=== PATIENT | female | born 1930 | race Caucasian/White ===

== ENCOUNTER 2017-04-22 11:50 | Emergency (ER) | payer OTHER ==
[~2017-04-22] VITALS: Ht 160 cm; Wt 57.0 kg
[~2017-04-22 11:50] MED LIST: HYDR-3535 PO; PRIL40CA PO; SIMV5TAB32 PO; TAB-TAB PO
[2017-04-22 12:07] VITALS: BP 177/69; PULSE 80; RESP 16; TEMP 98.5; O2SAT 96
[2017-04-22] MEDS ORDERED: D-20TAB3 PO (12:20)
[2017-04-22] MEDS ORDERED: OMEP20TA93 PO (12:20)
[2017-04-22] MEDS ORDERED: CALC200S NASAL (12:20)
[2017-04-22] MEDS ORDERED: CENTCHW4 CHEW (12:20)
[2017-04-22] MEDS ORDERED: CITRTAB7 PO (12:20)
[2017-04-22] MEDS ORDERED: SIMV20TA PO (12:20)
--- NOTE | 2017-04-22 13:33 | RADRPT ---
EXAM DATE/TIME: 04/22/2017 13:05 [place] COMPARISON: No previous studies available for comparison. INDICATIONS : Stubbed left foot, 5th toe, on table leg 1 week ago, has pain, and on and off swelling to foot MEDICAL HISTORY : Chronic obstructive pulmonary disease. SURGICAL HISTORY : None. ENCOUNTER: Initial ACUITY: 1 week PAIN SCORE: 5/10 LOCATION: Left foot FINDINGS: Three view examination of the left foot demonstrates mild soft tissue prominence overlying the latera l forefoot region. No subcutaneous emphysema or radiopaque foreign bodies. Osseous structures appear intact without evidence for acute bony fracture. The tarsal bones appear intact. The interphalangea l and metatarsophalangeal joints are intact. The calcaneus is intact. Bony mineralization is normal . CONCLUSION: 1. Mild soft tissue prominence overlying the lateral forefoot without subcutaneous emphysema or radio paque foreign bodies. 2. No acute fracture or dislocation. Alonso Sun MD on April 22, 2017 at 13:29 Board Certified Radiologist. This report was verified electronically.
--- NOTE | 2017-04-22 13:43 | PD ---
HPI Chief Complaint: Injury Time Seen by Provider: 12:27 Travel History International Travel<30 days: No Contact w/Intl Traveler<30days: No Traveled to known affect area: No History of Present Illness HPI 86-year-old female here with left foot pain swelling and bruising after she stubbed the foot on furniture approximately 7 days ago. She reports pain with weightbearing and range of motion of the toes. Pain is relieved with rest. Symptoms severity mild. She denies paresthesia or weakness of the extremity. [facility] Past Medical History High Cholesterol: Yes Diminished Hearing: No GERD: Yes ?: Not Past Surgical History Surgical History: No Previous Surgery Social History Alcohol Use: Yes (1-2 GLASSES OF WINE PER WEEK) Tobacco Use: No Substance Use: No Allergies-Medications (Allergen,Severity, Reaction): Coded Allergies: No Known Allergies (Verified Adverse Reaction, Unknown, 04/22/17) Reported Meds & Prescriptions Reported Meds & Active Scripts Active Reported Centrum (Multiple Vitamins W/ Minerals) 1 Chew 1 Tab CHEW DAILY Centrum (Multiple Vitamins W/ Minerals) 1 Chew 1 Tab CHEW DAILY Citracal + D3 Maximum (Calcium Citrate-Vitamin D) 315-250 Mg-Unit Tab 2 Tab PO BID D-2000 Maximum Strength (Cholecalciferol) 2,000 Unit Tab 2,000 Units PO DAILY Omeprazole 20 Mg Tab 20 Mg PO DAILY Simvastatin 20 Mg Tab 20 Mg PO DAILY Calcitonin ([place]) Nasal Pelzer (Calcitonin [place]) 200 Units/Act Soln 1 Pelzer NASAL DAILY Alternate nostrils daily. Review of Systems Except as stated in HPI: all other systems reviewed are Neg Physical Exam Narrative GENERAL: Alert well-appearing female in no distress SKIN: Warm and dry. HEAD: Normocephalic. CARDIOVASCULAR: Regular rate and rhythm without murmurs, gallops, or rubs. RESPIRATORY: Breath sounds equal bilaterally. No accessory muscle use. GASTROINTESTINAL: Abdomen soft, non-tender, nondistended. MUSCULOSKELETAL: No cyanosis. Attention to the left lower extremity: Notable swelling, ecchymosis and tenderness to the dorsal aspect of the foot involving the third, fourth, fifth toes. No deformity. Normal sensation. 2+ dorsal pedis pulses. Brisk cap refill. Data Data Last Documented VS Vital Signs Date Time Temp Pulse Resp B/P (MAP) Pulse Ox O2 Delivery O2 Flow Rate FiO2 04/22/17 12:07 98.5 80 16 177/69 (105) 96 Orders Orders Foot, Complete ([id number]) (04/22/17 ) MDM Medical Decision Making Medical Screen Exam Complete: Yes Emergency Medical Condition: Yes Differential Diagnosis Contusion, toe sprain, fracture Narrative Course 86 -year-old female with left foot pain and swelling and bruising after contusing the foot approximately a week ago on furniture. Examination is neurovascularly intact. X-rays negative for fracture. Patient be treated for contusion. Diagnosis Primary Impression: Contusion of left foot Qualified Codes: S90.32XA - Contusion of left foot, initial encounter Referrals: Primary Care Physician Additional Instructions: Ice and elevate the extremity. Take [id number] Tylenol or Motrin as needed for pain. Avoid prolonged standing or strenuous activity. Disposition: 01 DISCHARGE HOME Condition: Stable Elham Ortega Apr 22, 2017 13:43
== END 2017-04-22 13:55 | disposition home or self-care (01) ==
LOC: PHEFT 11:50
DX: S90.32XA Contusion of left foot, initial encounter (principal); W22.03XA Walked into furniture, initial encounter
CPT/HCPCS: 73630; 99283